=== PATIENT | female | born 1935 | race Two or more races ===

== ENCOUNTER 2017-10-05 12:32 | Outpatient (CLI) | payer OTHER | END 2017-10-05 12:45 | disposition home or self-care (01) | LOC: SONOGRAMA 12:32 | DX: E04.1 Nontoxic single thyroid nodule (principal) ==

== ENCOUNTER 2019-12-07 11:30 | Day surgery (SDC) | payer OTHER ==
[~2019-12-07 11:30] MED LIST: ACETAMINOPHEN500 M2 PO; CALCIUM500 M2 PO; FOLIC ACID20 MG PO; GLIPIZIDE XL5 MG PO; SYNTHROID75 MCG PO; TRIPLE FLEX CA1 EACH PO
== END 2019-12-07 19:45 | disposition home or self-care (01) ==
LOC: CIR.AMB 11:30
PROVIDERS: ATTEND Surgery
DX: C50.511 Malignant neoplasm of lower-outer quadrant of right female breast (principal); Z20.828 Contact with and (suspected) exposure to other viral communicable diseases

== ENCOUNTER 2022-03-31 12:31 | Outpatient (CLI) | payer OTHER | END 2022-03-31 12:32 | disposition home or self-care (01) | LOC: SONOGRAMA 12:31 | PROVIDERS: ATTEND Internal Medicine Endocrinology, Diabetes & Metabolism | DX: R74.01 Elevation of levels of liver transaminase levels (principal) ==